=== PATIENT | male | born 1965 | race Caucasian/White ===

== ENCOUNTER 2018-07-20 23:18 | Observation (INO) | payer OTHER ==
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
[2018-07-21] MEDS ORDERED: LIDOCAINE 1% 10 ML VIAL INJ ONE (00:12)
[2018-07-21] MEDS ORDERED: LIDOCAINE 1% W/ EPINEPHRINE 20 ML VIAL INJ ONE (00:13)
[2018-07-21] MEDS ORDERED: CHLORHEXIDINE GLUCONATE 4 % 15 ML UD TOP ONE ×2 (00:13→00:26)
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
[2018-07-21] MEDS ORDERED: MORPHINE SULFATE INJ 10 MG/ML VIAL IV ONE (00:58)
[2018-07-21] MEDS ORDERED: SULFA/TRIMETH 800/160 (DS) TAB 1 EA TAB PO ONE (01:22)
[2018-07-21] MEDS ORDERED: ACETAMINOPHEN 325 MG TAB PO PRN (02:00)
[2018-07-21] MEDS ORDERED: IV SET AND CAP CHANGE INJ INJ SCH (02:00)
[2018-07-21] MEDS ORDERED: ONDANSETRON INJ 4 MG/2 ML VIAL IV PRN (02:00)
[2018-07-21] MEDS ORDERED: SODIUM CHLORIDE 0.9% (FLUSH) 10 ML SYG IV PRN (02:00)
[2018-07-21] MEDS ORDERED: MORPHINE SULFATE INJ 10 MG/ML VIAL IV PRN (02:15)
[2018-07-21] MEDS ORDERED: PANTOPRAZOLE SODIUM IV 40 MG VIAL IV SCH (02:30)
[2018-07-21 06:15] VITALS: BP 135/86; TEMP 98.6
--- NOTE | 2018-07-21 07:56 | RAD ---
EXAM DESCRIPTION: Chest x-ray,2 Views CLINICAL HISTORY: pneumothorax COMPARISON: Previous chest x-ray July 20, 2018, CT neck July 21, 2018 TECHNIQUE: PA/lateral chest x-ray FINDINGS: Acute right clavicular fracture is noted near the junction of the middle and peripheral thirds. There is overlap of the fragments. The peripheral fragment is inferiorly displaced and overlapped measures 2.2 cm. Discoid atelectasis is seen in the right lung base with slight elevation of the right hemidiaphragm. Recent CT of the neck showed a small right apical pneumothorax. No visible pneumothorax on the chest x-ray. Heart size is normal with normal pulmonary vascularity. No pleural effusion. Left lung is clear with no consolidating infiltrate. Lateral view shows intact sternum and T-spine. IMPRESSION: Right clavicular fracture. Discoid atelectasis in the right perihilar region. Electronically signed by: Hayden Singh MD 07/21/2018 7:54 AM CDT
[2018-07-21] MEDS ORDERED: SULFA/TRIMETH 800/160 (DS) TAB 1 EA TAB PO SCH (08:00)
[2018-07-21] MEDS ORDERED: SODIUM CHLORIDE 0.9% (FLUSH) 10 ML SYG IV SCH (09:00)
[2018-07-21 09:09] VITALS: O2SAT 89
[2018-07-21] MEDS ORDERED: ACETAMINOPHEN W/COD #3 TAB 1 EA TAB PO PRN (10:23)
[2018-07-21] MEDS ORDERED: traMADol HCL 50 MG TAB PO ONE (12:40)
[2018-07-21] MEDS ORDERED: traMADol HCL 50 MG TAB ONE (12:44)
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
== END 2018-07-21 14:30 | disposition home or self-care (01) ==
LOC: ER 23:18 → MS 07-21 01:35
PROVIDERS: ADMIT Nurse Practitioner Acute Care; ATTEND Nurse Practitioner Acute Care
DX: S27.0XXA Traumatic pneumothorax, initial encounter (principal); S42.021A Displaced fracture of shaft of right clavicle, initial encounter for closed fracture; S22.31XA Fracture of one rib, right side, initial encounter for closed fracture; S01.01XA Laceration without foreign body of scalp, initial encounter; S40.812A Abrasion of left upper arm, initial encounter; S40.811A Abrasion of right upper arm, initial encounter; K21.9 Gastro-esophageal reflux disease without esophagitis; E87.6 Hypokalemia; R73.9 Hyperglycemia, unspecified; M50.221 Other cervical disc displacement at C4-C5 level; M48.02 Spinal stenosis, cervical region; F17.210 Nicotine dependence, cigarettes, uncomplicated; V20.4XXA Motorcycle driver injured in collision with pedestrian or animal in traffic accident, initial encounter; Y92.411 Interstate highway as the place of occurrence of the external cause; Y93.89 Activity, other specified
CPT/HCPCS: 12002; 96375; 96376; J2270 ×2; 80053 ×2; 36415; 81001; 85025 ×2; 85730; 85610; 71045; 71046; 73030; 70450; 72125; 94760 ×2; 99406; 99291; G0378; 96374